=== PATIENT | male | born 1990 | race Caucasian/White ===

== ENCOUNTER 2019-02-04 14:30 | Emergency (ER) | payer OTHER ==
[~2019-02-04] VITALS: Ht 167.6 cm; Wt 67.3 kg
[2019-02-04 14:44] VITALS: BP 129/83; PULSE 72; RESP 18; Ht 167.6 cm; Wt 67.3 kg
[2019-02-04] MEDS ORDERED: ACET500C5 PO (16:34)
[2019-02-04] MEDS ORDERED: ONDA4TAB8 PO (16:34)
[2019-02-04] MEDS ORDERED: NAPR-985 PO (16:34)
[2019-02-04] MEDS ORDERED: KETOROLAC 30 MG INJ IM STA (16:39)
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
== END 2019-02-04 17:10 | disposition home or self-care (01) ==
LOC: FTE 14:30
DX: S09.90XA Unspecified injury of head, initial encounter (principal); S19.9XXA Unspecified injury of neck, initial encounter; V89.2XXA Person injured in unspecified motor-vehicle accident, traffic, initial encounter
CPT/HCPCS: 96372; 99284; J1885